=== PATIENT | female | born 1945 | race Caucasian/White ===

== ENCOUNTER 2017-12-05 14:24 | Emergency (ER) | payer MEDICARE, OTHER ==
[~2017-12-05] VITALS: Ht 175.3 cm; Wt 75.0 kg
[~2017-12-05 14:24] MED LIST: ADVAIR DISK1 IN; ALBUTEROL0.5 % IN; AMOXICILLIN500 MG PO; AUGMENTIN875TAB PO; CIPR1 PO; CIPROFLOXACN500 MG PO; HYDROCO/APAP1 TA9 PO; NEXIUM20 M1 OR; NEXIUM20 M1 PO; NITROFURANTN100 MG PO; SPIRIVA IN; ZOFRAN ODT4 MG SL
[2017-12-05 15:24] LABS: IMMATURE GRANULOCYTES 1.3 % (0.0-5.0); MEAN CELL VOLUME 90.4 fL CALC (80.0-100.0); MEAN CORPUSCULAR HGB 29.7 pG CALC (26.0-32.0); MEAN CORPUSCULAR HGB CONC 32.8 g/L CALC (32.0-36.0); NEUT# 9.02 thou/uL (2.00-7.15); RED BLOOD COUNT 5.53 mill/uL (4.20-5.60); RED CELL DISTRI WIDTH 13.2 % (11.5-15.5)
[2017-12-05 15:28] LABS: HEMOGLOBIN 16.4 g/dl (12.0-16.0)
[2017-12-05 15:43] LABS: ALBUMIN 4.3 g/dL (3.2-5.0); ALKALINE PHOSPHATASE 129 u/l (38-126); ANION GAP 17 (6-22 (CALC)); BILIRUBIN, TOTAL 0.5 mg/dL (0.0-1.4); BUN 11 mg/dL (8-23); BUN/CREATININE RATIO 20 (12-20 (CALC)); CARBON DIOXIDE 26 mmol/l (22-30); CHLORIDE 98 mmol/l (95-108); CREATININE 0.6 mg/dL (0.5-1.0); GFR > 60 ML/MIN (>=60 (CALC)); GFR FOR AFR.AMER. > 60 ML/MIN (>=60 (CALC)); LIPASE 51 u/l (23-300); POTASSIUM 4.3 mmol/l (3.5-5.1); SGOT/AST 17 u/l (9-36); SGPT/ALT 28 u/l (11-66); SODIUM 137 mmol/l (137-146)
[2017-12-05] MEDS ORDERED: ZOFRAN4 MG/TAB PO (16:12)
[2017-12-05] MEDS ORDERED: PROTONIX40 M2 PO (16:12)
[2017-12-05 16:39] VITALS: BP 144/65
[2017-12-06] MEDS ORDERED: ZITHROMAX250 MG PO (12:16)
[2017-12-06] MEDS ORDERED: PERCOGESI1 PO (12:17)
== END 2017-12-05 16:46 | disposition home or self-care (01) ==
LOC: ED 14:24
PROVIDERS: Emergency Medicine
DX: R11.2 Nausea with vomiting, unspecified (principal); K21.9 Gastro-esophageal reflux disease without esophagitis; J44.9 Chronic obstructive pulmonary disease, unspecified

== ENCOUNTER 2017-12-06 07:28 | Emergency (ER) | payer MEDICARE, OTHER ==
[~2017-12-06] VITALS: Ht 175.3 cm; Wt 75.0 kg
[~2017-12-06 07:28] MED LIST changes: +PROTONIX40 M2 PO; +ZOFRAN4 MG/TAB PO
[2017-12-06 08:02] LABS: URINE BILIRUBIN - DIPSTICK NEGATIVE (NEGATIVE); URINE BLOOD DIPSTICK TRACE-LYSED (NEGATIVE); URINE COLOR YELLOW; URINE GLUCOSE - DIPSTICK NEGATIVE (NEGATIVE); URINE KETONE NEGATIVE (NEGATIVE); URINE LEUK ESTERASE NEGATIVE (NEGATIVE); URINE NITRITE - DIPSTICK NEGATIVE (Negative); URINE PROTEIN - DIPSTICK NEGATIVE (NEG-TRACE); URINE SPECIFIC GRAVITY >=1.030; URINE UROBILINOGEN - DIPSTICK 0.2 E.U./dL (0.2)
[2017-12-06 08:03] LABS: URINE CLARITY CLEAR
[2017-12-06 08:11] LABS: HEMATOCRIT 48.3 % (37.0-47.0); HEMOGLOBIN 15.7 g/dl (12.0-16.0); IMMATURE GRANULOCYTES 0.8 % (0.0-5.0); MEAN CELL VOLUME 90.1 fL CALC (80.0-100.0); MEAN CORPUSCULAR HGB 29.3 pG CALC (26.0-32.0); MEAN CORPUSCULAR HGB CONC 32.5 g/L CALC (32.0-36.0); NEUT# 10.85 thou/uL (2.00-7.15); RED BLOOD COUNT 5.36 mill/uL (4.20-5.60); RED CELL DISTRI WIDTH 13.1 % (11.5-15.5)
[2017-12-06 08:27] LABS: ALBUMIN 4.2 g/dL (3.2-5.0); ALKALINE PHOSPHATASE 116 u/l (38-126); ANION GAP 17 (6-22 (CALC)); BILIRUBIN, TOTAL 0.7 mg/dL (0.0-1.4); BUN 11 mg/dL (8-23); BUN/CREATININE RATIO 18 (12-20 (CALC)); CARBON DIOXIDE 26 mmol/l (22-30); CHLORIDE 93 mmol/l (95-108); CREATININE 0.6 mg/dL (0.5-1.0); GFR > 60 ML/MIN (>=60 (CALC)); GFR FOR AFR.AMER. > 60 ML/MIN (>=60 (CALC)); LIPASE 34 u/l (23-300); POTASSIUM 4.1 mmol/l (3.5-5.1); SGOT/AST 17 u/l (9-36); SGPT/ALT 29 u/l (11-66); SODIUM 132 mmol/l (137-146); TOTAL PROTEIN 7.5 g/dL (6.3-8.2)
[2017-12-06] MEDS ORDERED: ZITHROMAX250 MG PO (12:16)
[2017-12-06] MEDS ORDERED: PERCOGESI1 PO (12:17)
[2017-12-06 12:39] VITALS: BP 119/62
== END 2017-12-06 12:39 | disposition home or self-care (01) ==
LOC: ED 07:28
PROVIDERS: Emergency Medicine
DX: R11.10 Vomiting, unspecified (principal); K21.9 Gastro-esophageal reflux disease without esophagitis; J44.9 Chronic obstructive pulmonary disease, unspecified
CPT/HCPCS: Q9967

== ENCOUNTER 2020-04-18 10:51 | Inpatient (IN) | payer MEDICARE, MEDICAID ==
[~2020-04-18] VITALS: Ht 175.3 cm; Wt 70.5 kg
[2020-04-18] VITALS (18 sets, daily range): BP systolic 84–129; BP diastolic 46–74
[~2020-04-18 10:51] MED LIST changes: +PERCOGESI1 PO; +ZITHROMAX250 MG PO
--- NOTE | 2020-04-18 10:55 | NUR ---
TO ROOM VIA EMS. MD AT BEDSIDE.
[2020-04-18 11:39] LABS: HEMATOCRIT 47.8 % (37.0-47.0); HEMOGLOBIN 15.1 g/dl (12.0-16.0); IMMATURE GRANULOCYTES 3.4 % (0.0-5.0); MEAN CORPUSCULAR HGB 29.4 pG CALC (26.0-32.0); MEAN CORPUSCULAR HGB CONC 31.6 g/dL CAL (32.0-36.0); NEUT# 4.92 thou/uL (2.00-7.15); RED BLOOD COUNT 5.14 mill/uL (4.20-5.60); RED CELL DISTRI WIDTH 15.5 % (11.5-15.5)
[2020-04-18 11:59] LABS: ALBUMIN 3.7 g/dL (3.2-5.0); ALKALINE PHOSPHATASE 80 u/l (38-126); ANION GAP 16 (6-22 (CALC)); BILIRUBIN, TOTAL 0.6 mg/dL (0.0-1.4); CARBON DIOXIDE 24 mmol/l (22-30); CHLORIDE 96 mmol/l (95-108); CREATININE 0.7 mg/dL (0.5-1.0); GFR > 60 ML/MIN (>=60 (CALC)); GFR FOR AFR.AMER. > 60 ML/MIN (>=60 (CALC)); LIPASE 99 u/l (23-300); POTASSIUM 4.7 mmol/l (3.5-5.1); SODIUM 131 mmol/l (137-146)
--- NOTE | 2020-04-18 12:00 | NUR ---
RESTING IN HIGH FOWLERS, SPO2 88-90% ON 100% NONREBREATHER. DENIES NEEDS.
[2020-04-18 12:10] LABS: BUN 36 mg/dL (8-23); BUN/CREATININE RATIO 51 (12-20 (CALC)); C-REACTIVE PROTEIN 24.4 mg/dL (0-0.9); SGOT/AST 51 u/l (9-36)
--- NOTE | 2020-04-18 13:20 | NUR ---
PT RETURNED FROM RADIOOLGY VIA STRETCHER. HR 120'S-130'S, SPO2 80% ON 100% NON REBREATHER. PT ALERT AND ORIENTED. DENIES PAIN. NOTIFIED.
--- NOTE | 2020-04-18 13:30 | NUR ---
RESP THERAPIST AT BEDSIDE. BI PAP INITIATED. PT TOLERATED WITHOUT C/O.
--- NOTE | 2020-04-18 13:45 | NUR ---
CARDIZIEM GTT INITIATED PER PROTOCOL 10ML/HR.
[2020-04-18 14:00] LABS: URINE BILIRUBIN - DIPSTICK SMALL (NEGATIVE); URINE BLOOD DIPSTICK LARGE (NEGATIVE); URINE COLOR AMBER; URINE GLUCOSE - DIPSTICK NEGATIVE (NEGATIVE); URINE KETONE 15 mg/dL (NEGATIVE); URINE LEUK ESTERASE NEGATIVE (NEGATIVE); URINE NITRITE - DIPSTICK NEGATIVE (Negative); URINE PROTEIN - DIPSTICK 30 mg/dL (NEG-TRACE); URINE SPECIFIC GRAVITY >=1.030; URINE UROBILINOGEN - DIPSTICK 0.2 E.U./dL (0.2)
[2020-04-18 14:08] LABS: URINE AMORPH SEDIMENT FEW hpf (NONE-FEW); URINE FINE GRAN CAST FEW lpf; URINE SQUAMOUS EPITHELIAL CELL FEW EPI/hpf (0-FEW); URINE WBC 0-2 WBC/hpf (0-5); URINE YEAST FEW hpf
--- NOTE | 2020-04-18 14:39 | NUR ---
PT ASSISTED TO BEDPAN. KATHRINE CARE PROVIDED.
[2020-04-18] MEDS ORDERED: ZPAK PO (15:43)
[2020-04-18] MEDS ORDERED: ONDANSETRON ODT8 MG SL (15:43)
[2020-04-18] MEDS ORDERED: SPIRIVA HANDIHALER IN (15:44)
[2020-04-18] MEDS ORDERED: SYMBICORT1 AE1 IN (15:45)
--- NOTE | 2020-04-18 16:32 | NUR ---
MARTIN WILCOX APRN AT BEDSIDE.
--- NOTE | 2020-04-18 17:00 | NUR ---
PT ASSISTED TO BEDPAN.
--- NOTE | 2020-04-18 17:16 | NUR ---
REPORT CALLED TO JIM DOLL.
--- NOTE | 2020-04-18 17:30 | NUR ---
TO ICU VIA STRETCHER, MONITORS AND BI PAP IN PLACE. ACCOMPANIED BY CECY MCDONALD
--- NOTE | 2020-04-18 17:45 | NUR ---
PATIENT ARRIVES VIA STRETCHER ON BIPAP FIO2 100%, NO SOB NOTED, DENIES SOB. ACCOMPANIED BY RT YOSI AND ER NURSE JANET. IS ABLE TO SCOOT TO BED. LIMITED MEDICAL HISTORY OBTAINED DUE TO PATIENT ON BIPAP MASK AND GARBLED SPEECH. O2 SATS 88%-90%. ON CARDIZEM DRIP AT 10 MG/HR AND NS AT KVO, REMDESEVIR AT 250 ML/HR. LAC 18 EMS SITE INTACT, RAC 20 G INTACT, ALL FLUSH PROPERLY. NURSE ASSESSMNET PERFORMED, SEE CHARTING DOCUMENTATION. LAYS IN LOVE'S POSITION. HR RANGES LOW 100'S. CALL LIGHT WITHIN REACH.
--- NOTE | 2020-04-18 19:15 | NUR ---
PT RESTING IN BED ON BIPAP AT THIS TIME. PT IS ALERT AND ORIENTED X3. SHIFT ASSESSMENT COMPLETED AT THIS TIME. IV PATENT X2. CALL LIGHT IN REACH. WILL CONTINUE TO MONITOR
--- NOTE | 2020-04-18 20:11 | NUR ---
SPOKE WITH DAUGHTER SHANTEL REFERENCE QUESTION OF DNI/DNR. FAMILY STATES THAT PATIENT WISHES TO BE A DNR. DR HO NOTIFIED FOR ORDERS.
--- NOTE | 2020-04-18 20:49 | NUR ---
PT STRETCHER AND DRIER LIGHT REQUESTING WATER AND FOR BIPAP TO BE REMOVED. EXPLAINED THE NECESSITY OF THE BIPAP. WATER PROVIDED. PT AGREES TO KEEP BIPAP ON.
--- NOTE | 2020-04-18 22:07 | NUR ---
PT RESTING IN BED WITH EYES CLOSED ON BIPAP AT THIS TIME. VSS ON MONITOR. WILL CONTINUE TO MONITOR.
--- NOTE | 2020-04-18 23:14 | NUR ---
RT AT BEDSIDE FOR EKG
[2020-04-19] VITALS (22 sets, daily range): BP systolic 102–171; BP diastolic 48–79
--- NOTE | 2020-04-19 00:24 | NUR ---
pt resting in bed on bipap. vss on momitor. call lgiht in reach. will continue to monitor.
--- NOTE | 2020-04-19 02:00 | NUR ---
pt resting in bed on bipap. vss on monitor. call light in reach. will continue to monitor.
--- NOTE | 2020-04-19 04:03 | NUR ---
PT RESTING IN BED ON BIPAP. RESP ARE EVEN AND UNLABORED. NO DISTRESS NOTED. CALL LIGHT IN REACH. WILL CONTINUE TO MONITOR.,
--- NOTE | 2020-04-19 04:53 | NUR ---
LAB AT BEDSIDE AT THIS TIME.
[2020-04-19 05:12] LABS: HEMATOCRIT 45.9 % (37.0-47.0); HEMOGLOBIN 13.9 g/dl (12.0-16.0); MEAN CELL VOLUME 93.9 fL CALC (80.0-100.0); MEAN CORPUSCULAR HGB 28.4 pG CALC (26.0-32.0); MEAN CORPUSCULAR HGB CONC 30.3 g/dL CAL (32.0-36.0); NEUT# 3.19 thou/uL (2.00-7.15); RED BLOOD COUNT 4.89 mill/uL (4.20-5.60); RED CELL DISTRI WIDTH 15.6 % (11.5-15.5)
[2020-04-19 05:44] LABS: ALKALINE PHOSPHATASE 77 u/l (38-126); ANION GAP 15 (6-22 (CALC)); BUN 24 mg/dL (8-23); BUN/CREATININE RATIO 43 (12-20 (CALC)); CARBON DIOXIDE 23 mmol/l (22-30); CHLORIDE 105 mmol/l (95-108); CREATININE 0.6 mg/dL (0.5-1.0); GFR > 60 ML/MIN (>=60 (CALC)); GFR FOR AFR.AMER. > 60 ML/MIN (>=60 (CALC)); POTASSIUM 4.7 mmol/l (3.5-5.1); SGOT/AST 47 u/l (9-36); SODIUM 137 mmol/l (137-146)
[2020-04-19 05:54] LABS: BILIRUBIN, TOTAL 0.3 mg/dL (0.0-1.4); C-REACTIVE PROTEIN 19.8 mg/dL (0-0.9)
--- NOTE | 2020-04-19 06:03 | NUR ---
PT RESTING IN BED ON BIPAP. RESP ARE EVEN AND UNLABORED. NO DISTRESS NOTED. CALL LIGHT IN REACH. WILL CONTINUE TO MONITOR.
--- NOTE | 2020-04-19 06:34 | NUR ---
RT AT BEDSIDE TO TRY PATIENT ON HI NICKIE NASAL CANNULA.
--- NOTE | 2020-04-19 06:47 | NUR ---
PT PLACED BAKC ON BIPAP DUE TO DECREASED O2 SATS
--- NOTE | 2020-04-19 07:10 | NUR ---
REPORT RECEIVED FROM LAVON BRIDGES. PT RESTING IN BED SEMI FOWLERS; ALERT AND OREINTED X 3; BIPAP IN PLACE 100% FIO2; SPO2 92-93%; RESPIRATIONS EVEN AND SLIGHTLY LABORED; COURSE LUNG SOUNDS TO LEFT LOBE AND INSPIRATORY WHEEZING TO RIGHT LOBE, SLIGHTLY DIMINISHED OVERALL. DENIES PAIN. NS INFUSING AT KVO WITHOUT DIFFICULTY; IV SITES APPEAR HEALTHY. ON AIRBORNE/CONTACT PRECAUTIONS FOR COVID19. POC REVIEWED. PT ENCOURAGED TO VERBALIZE CONCERNS; STATES UNDERSTANDING. SAFETY MEASURES IN PLACE. CALL LIGHT WITHIN REACH.
--- NOTE | 2020-04-19 08:19 | NUR ---
DR. BARR AT BEDSIDE.
--- NOTE | 2020-04-19 08:36 | NUR ---
RT AT BEDSIDE; PT NOW ON VAPOTHERM 40L 100% FOI2.
--- NOTE | 2020-04-19 10:06 | NUR ---
SPO2 ON VAPOTHERM 75-80%; PT HAS LABORED BREATHING, BUT IN NO SEVERE DISTRESS. PLACED BACK ON BIPAP WITH 100% FIO2; SPO2 INCREASED TO 92% AT THIS TIME. PT GIVEN SCHEDULED INHALERS AND ABT INFUSING.
--- NOTE | 2020-04-19 10:49 | NUR ---
Patient is screened for PT intervention and may benefit if medical agrees
--- NOTE | 2020-04-19 11:50 | NUR ---
ASSISTED ONTO BEDPAN FOR VOID; ASSISTED WITH KATHRINE CARE. PT NOW RESTING ON LEFT SIDE. 95-97% ON BIPAP.
--- NOTE | 2020-04-19 13:55 | NUR ---
USED CALL LIGHT TO REQUEST BEDPAIN FOR SMALL PASTY DARK BROWN BOWEL MOVEMENT AND VOID; ASSISTED WITH KATHRINE CARE. BIPAP REMOVED FOR SIP OF WATER AND REAPPLIED. RESTING WITH HOB ELEVATED 45 DEGREES AT THIS TIME. FAMILY MEMBERS CALLING IN FOR UPDATES; QUESTIONS ANSWERED TO SATISFACTION.
--- NOTE | 2020-04-19 16:00 | NUR ---
RESTING WITH EYES CLOSED AND NO SIGNS OF DISTRESS; RESPIRATIONS EVEN AND UNLABORED; BIPAP SETTINGS NOW 90% FOI2 AND RATE OF 18; RESP 22-28; PT TOLERATING MASK WELL. NO REQUESTS OR CONCERNS AT THIS TIME.
--- NOTE | 2020-04-19 17:45 | NUR ---
REPOSITIONED AND ASSISTED WITH BEING PULLED UP IN BED; VOIDED 100ML OF CLOUDY CLARICE URINE IN ARSHAD. IV FLUIDS COMPLETED AND IV SITES NOW SALINE LOCKED.
--- NOTE | 2020-04-19 18:45 | NUR ---
REPORT RECEIVED FROM DARYL DOLL. CARE ASSUMED.
--- NOTE | 2020-04-19 19:15 | NUR ---
PT RESTING IN BED AWAKE. PT IS ALERT AND ORIENTED X3. PT ON VAPOTHERM. SHIFT ASSESSMENT COMPLETED AT THIS TIME. IV PATENT X2. CALL LIGHT IN REACH. WILL CONTINUE TO MONITOR.
--- NOTE | 2020-04-19 19:18 | NUR ---
RESPIRATORY WENT TO ASSESS THE PATIENT FOR DEEP SUCTIONING. PATIENT HAS A STRONG COUGH. NOT ENOUGH SECRETION TO BE SUCTIONED. RN NOTIFIED AFTER RT ASSESSMENT.
--- NOTE | 2020-04-19 21:30 | NUR ---
PT PLACED BACK ON BIPAP AT THIS TIME.
--- NOTE | 2020-04-19 22:40 | NUR ---
PT RESTING IN BED ON BIPAP. ROMA VIDAL INTO GIVE PT MEDS. BIPAP REMOVED FOR MEDS AND THEN PLACED BACK ON.
--- NOTE | 2020-04-19 23:47 | NUR ---
PT RESTING IN BED ON BIPAP. VSS ON MONITOR. CALL LIGHT IN REACH. WILL CONTINUE TO MONITOR.
[2020-04-20] VITALS (22 sets, daily range): BP systolic 111–172; BP diastolic 63–89
--- NOTE | 2020-04-20 01:51 | NUR ---
PT RESTING IN BED IN PRONE POSITION ON BIPAP. VSS ON MONITOR. CALL LIGHT IN REACH. WILL CONTINUE TO MONITOR.
--- NOTE | 2020-04-20 03:42 | NUR ---
PT WITH COMPLAINTS OF ABD PAIN AND NAUSEA. CALLED RT TO PLACE PT ON VAPOTHERM INSTEAD OF BIPAP DUE TO NAUSEA.
--- NOTE | 2020-04-20 05:00 | NUR ---
LAB AT BEDSIDE FOR AM LABS
[2020-04-20 05:59] LABS: HEMATOCRIT 45.2 % (37.0-47.0); HEMOGLOBIN 13.9 g/dl (12.0-16.0); MEAN CORPUSCULAR HGB 28.9 pG CALC (26.0-32.0); MEAN CORPUSCULAR HGB CONC 30.8 g/dL CAL (32.0-36.0); RED BLOOD COUNT 4.81 mill/uL (4.20-5.60); RED CELL DISTRI WIDTH 15.8 % (11.5-15.5)
--- NOTE | 2020-04-20 06:00 | NUR ---
PT RESTING IN BED ON BIPAP. NO DISTRESS NOTED. CALL LIGHT IN REACH. WILL CONTINUE TO MONITOR.
[2020-04-20 06:21] LABS: ALBUMIN 3.1 g/dL (3.2-5.0); ALKALINE PHOSPHATASE 78 u/l (38-126); BUN 18 mg/dL (8-23); BUN/CREATININE RATIO 42 (12-20 (CALC)); CHLORIDE 103 mmol/l (95-108); CREATININE 0.4 mg/dL (0.5-1.0); GFR > 60 ML/MIN (>=60 (CALC)); GFR FOR AFR.AMER. > 60 ML/MIN (>=60 (CALC)); POTASSIUM 4.5 mmol/l (3.5-5.1); SGOT/AST 35 u/l (9-36); SODIUM 139 mmol/l (137-146); TOTAL PROTEIN 5.9 g/dL (6.3-8.2)
[2020-04-20 06:22] LABS: ANION GAP 11 (6-22 (CALC)); BILIRUBIN, TOTAL 0.5 mg/dL (0.0-1.4); CARBON DIOXIDE 30 mmol/l (22-30)
--- NOTE | 2020-04-20 07:30 | NUR ---
pt awake in bed; no apparent distress noted; pt offers no complaints; assessment completed at this time; pt alert and oriented; denies pain; no n/v noted per filing writer; resp even and unlabored; lungs diminished; skin color wnl; bipap intact and maintained with settings of 16/8 with 100% FiO2; dry cough noted; hr reg; strong pulses; no edema noted; sr on monitor; abd soft with bs present; no bm noted per filing writer; no urine to inspect at this time; bedpan provided prn; #20 lac saline locked; no redness or edema noted at site; am bath offered and declined; plan of care/ am meds explained; call light within reach; will continue to monitor
--- NOTE | 2020-04-20 09:07 | NUR ---
staff at bedside; am meds explained and administered; pt continues to request off bipap; importance explained; will contiune to monitor
--- NOTE | 2020-04-20 10:05 | NUR ---
awake in bed; no apparent distress noted; pt continues to request off of the bipap machine; informed oxygen level drop when off machine; po fluids provided; iv intact; abt infusing without complication; sr on monitor; call light within reach; will continue to monitor
--- NOTE | 2020-04-20 11:13 | NUR ---
maty Venessa called this staff writer; update provided; will continue to monitor
--- NOTE | 2020-04-20 12:00 | NUR ---
awake in bed; no apparent distress noted; resp even and unlabored; iv intact; sr on monitor; call light within reach; will continue to monitor
--- NOTE | 2020-04-20 13:05 | NUR ---
pt awake in bed; bipap importance explained and pt compliant; sr on monitor; iv intact and patent; pt deny needs; call light within reach; will continue to monitor
--- NOTE | 2020-04-20 14:20 | NUR ---
awake in bed; continue to manuever with bipap; RT at bedside to explained the importance of leaving bipap in place; po fluids provided; sr on monitor; call light within reach; will continue to monitor
--- NOTE | 2020-04-20 15:27 | NUR ---
pt has removed bipap; o2 sat noted at 81%; re-applied; will continue to monitor
--- NOTE | 2020-04-20 15:52 | NUR ---
pt again has removed bipap; o2 sat 80%; bipap reapplied
--- NOTE | 2020-04-20 16:20 | NUR ---
awake in bed; bipap intact and maintained; iv intact; sr on monitor; call light within reach; will continue to monitor
--- NOTE | 2020-04-20 18:20 | NUR ---
awake in bed; offers no complaints; iv intact and patent; no redness or edema noted at site; bipap intact and maintained; iv intact; sr on monitor; call light within reach
--- NOTE | 2020-04-20 18:55 | NUR ---
REPORT RECEIVED FROM Jillian PINA RN, CARE OF PT ASSUMED AT THIS TIME.
--- NOTE | 2020-04-20 19:00 | NUR ---
PT HAS TAKEN APART AND DISCONNECTED BIPAP TUBING, SPO2 QUICKLY DECREASES TO THE 50'S. ORDER FOR B/L WRIST RESTRAINTS RECEIVED, SEE ORDERS. B/L SOFT WRIST RESTRAINTS APPLIED AFTER BIPAP REAPPLIED. SP02 90-91% AFTER BIPAP REAPPLIED. B/L RESTRAINTS NEEDED TO MAINTAIN BIPAP ON AND SATS WNL.
--- NOTE | 2020-04-20 19:00 | NUR ---
REPORT RECEIVED FROM Jillian PINA RN, CARE OF PT ASSUMED AT THIS TIME.
--- NOTE | 2020-04-20 19:30 | NUR ---
PHYSICAL ASSESMENT COMPLETE, SEE SHIFT ASSESMENT.
--- NOTE | 2020-04-20 19:55 | NUR ---
daughter Venessa called per promotion writer; update provided
--- NOTE | 2020-04-20 19:58 | NUR ---
RETAIL SHIFT LEADER IN ROOM TO PUT PT ON BEDPAN.
--- NOTE | 2020-04-20 20:00 | NUR ---
RESTRAINTS RELEASED FOR CARE, PT INCONTINENT OF MODERATE AMOUNT DARK BROWN "PASTE CONSISTENCY" STOOL, PT WASHED/ LINENS CHANGED WITH ASSISTANCE FROM HOSPITAL INTERN.
--- NOTE | 2020-04-20 20:59 | NUR ---
SCHEDULED MEDICATION ADMINISTERED, SEE E-MAR.
--- NOTE | 2020-04-20 21:15 | NUR ---
PATIENT REMOVES MASK BY SHAKING HEAD BACK AND FORTH AND MANUEVERING MASK AGAINST HER SHOULDER. STATES "I NEED THIS OFF TO GET SOME AIR", EXPLAINED TO PATIENT SHE GETS VERY HYPOXIC WITHOUT BIPAP AND KEEPING BIPAP ON IS PROVIDING HER WITH THE AMOUNT OF OXYGEN NEEDED.
--- NOTE | 2020-04-20 22:00 | NUR ---
PT RESTING IN BED WTH EYES CLOSED, APPEARS TO BE SLEEPING COMFORTABLE. NO LONGER FIGHTING BIBPAP.
--- NOTE | 2020-04-20 23:15 | NUR ---
PT AWAKE, ABLE TO DISCONNECT BIPAP BY SHAKING HER HEAD BACK AND FORTH AND RUBBING HOSE AGAINST BED. PT QUICKLY DESATS IN TO THE 80'S. BIPAP RE-APPLIED. SONJA APPLIED BY Tequila LOAIZA RN TO HELP WITH PT VOIDING SHE BECOMES VERY SOB WITH USING BEDPAN.
--- NOTE | 2020-04-20 23:40 | NUR ---
PT STATES ATIVAN MAKE HER VOMIT, ATIVAN HELD.
[2020-04-21] VITALS (51 sets, daily range): BP systolic 81–156; BP diastolic 34–109
--- NOTE | 2020-04-21 | NUR ---
APPEARS PT IS AFIB RVR ON MONITOR, DR. ZAPIEN NOTIFIED ORDER FOR CARDIZEM GTT RECEIVED.
--- NOTE | 2020-04-21 00:15 | NUR ---
ORDER FOR SL XANAX RECEIVED FROM DR. ZAPIEN, PT REPORTS SHE CAN TOLERATE XANAX AND AGREES TO TAKE, SEE E-MAR.
--- NOTE | 2020-04-21 00:15 | NUR ---
CARDIZEM GTT INITIATED AT 10MG/10 ML PER HOUR, SEE E-MAR.
--- NOTE | 2020-04-21 01:42 | NUR ---
Antoine GOTTI OYSTER BUYER IN WITH PT TO ADJUSTS BIPAP MASK.
--- NOTE | 2020-04-21 02:46 | NUR ---
ORDER RECEIVED FROM DR. ZAPIEN FOR MORPHINE 4MG IV X1 NOW FOR RESP DISTRESS
--- NOTE | 2020-04-21 03:04 | NUR ---
PT MEDICATE WITH MORPHINE 4MG IV FOR RESPIRATORY DISTRESS AND ZOFRAN 4MG TO PREVENT N/V, SEE E-MAR.
--- NOTE | 2020-04-21 03:35 | NUR ---
PT CALMER AND LESS RESTLESS, HEART RATE IN THE 80'S/90'S, WORK OF BREATHING DECREASED.
--- NOTE | 2020-04-21 05:24 | NUR ---
PT APPEARS TO BE SLEEPING COMFORTABLY, BIPAP ON, SP02 88%, RESPIRATIONS REGULAR AND UNLABORED, NO APPARENT DISTRESS, CALL FLETCHER WITHIN REACH.
--- NOTE | 2020-04-21 06:15 | NUR ---
NIBP 89/44mmHg, CARDIZEM GTT DECREASED TO 10MG/ HOUR
[2020-04-21 06:20] LABS: HEMATOCRIT 44.3 % (37.0-47.0); HEMOGLOBIN 13.5 g/dl (12.0-16.0); MEAN CELL VOLUME 94.1 fL CALC (80.0-100.0); MEAN CORPUSCULAR HGB 28.7 pG CALC (26.0-32.0); MEAN CORPUSCULAR HGB CONC 30.5 g/dL CAL (32.0-36.0); NEUT# 11.9 thou/uL (2.00-7.15); RED BLOOD COUNT 4.71 mill/uL (4.20-5.60); RED CELL DISTRI WIDTH 15.7 % (11.5-15.5)
--- NOTE | 2020-04-21 06:35 | NUR ---
CALL RECEIVED FROM PT'S SON, UPDATES PROVIDED, QUESIONS ANSWERED.
[2020-04-21 06:45] LABS: ALBUMIN 2.8 g/dL (3.2-5.0); ALKALINE PHOSPHATASE 81 u/l (38-126); ANION GAP 11 (6-22 (CALC)); BILIRUBIN, TOTAL 0.6 mg/dL (0.0-1.4); BUN 16 mg/dL (8-23); BUN/CREATININE RATIO 33 (12-20 (CALC)); C-REACTIVE PROTEIN 7.9 mg/dL (0-0.9); CARBON DIOXIDE 34 mmol/l (22-30); CHLORIDE 103 mmol/l (95-108); CREATININE 0.5 mg/dL (0.5-1.0); GFR > 60 ML/MIN (>=60 (CALC)); GFR FOR AFR.AMER. > 60 ML/MIN (>=60 (CALC)); POTASSIUM 3.5 mmol/l (3.5-5.1); SGOT/AST 63 u/l (9-36); SODIUM 144 mmol/l (137-146); TOTAL PROTEIN 5.6 g/dL (6.3-8.2)
--- NOTE | 2020-04-21 07:00 | NUR ---
TROPONIN OF 8.5 REPORTED TO Jillian YU RN TO F/U WITH PT AND FAMILY REGARDING POSSIBLE TX TO [facility] FOR CARDIOLOGY. REPEAT TROPONIN IN 2 HOURS ORDERED.
--- NOTE | 2020-04-21 07:00 | NUR ---
AT TIME OF BEDSIDE REPORT PT IS NOTED TO HAVE REMOVIED RESTRAINTS. PT IS CURRENTLY CALM AND COOPERATIVE. NOT PULLING AT BIBPAP OR IV. RESTRAINTS D/C'D.
--- NOTE | 2020-04-21 07:45 | NUR ---
pt resting in bed with eyes closed; easily aroused; pt not compliant with am care; pt appears drowsy; pushes staff away when attempting to do an assessment; no apparent distress noted; no s/s of pain noted; no n/v noted; resp even and unlabored; lungs clear/ diminished; skin color wnl; o2 per bipap with settings of 16/8, rate 18 and 100% FiO2; hr reg; strong pulses; no edema noted; sr on monitor; abd soft with bs present; no bm noted per real estate underwriter; no urine to inspect at this time; #20 flushed and patent to lac; cardizem gtt titrated from 10 mg to 5mg/hr; no redness or edema noted at site; eks attempted, again to noncompliant with care; repositioned for comfort; plan of care/ am meds explained; will continue to monitor closely
--- NOTE | 2020-04-21 08:15 | NUR ---
awake; restless in bed; Cheryl Engel present outside of door per self to speak with pt; update provided; will continue to monitor
--- NOTE | 2020-04-21 08:31 | NUR ---
call received from Cheryl Engel; Cheryl has spoken with family and wishes for pt to be transferred if that is the recommendations per MD; Cheryl also informs this life underwriter that family wishes to have everything done including intubation; will speak with MD
--- NOTE | 2020-04-21 09:22 | NUR ---
awake in bed; noncompliant with nursing care; pt continues to remove bipap mask; pt refused po meds/inhalers; repositioned; extremely restless; st on monitor; will continue to monitor
--- NOTE | 2020-04-21 09:40 | NUR ---
Dr Martinez present at bedside to assess pt and discuss plan of care
--- NOTE | 2020-04-21 10:00 | NUR ---
phoned [facility] transfer center to initiate transfer spoke with tara. face sheet and covid test results faxed.
--- NOTE | 2020-04-21 10:05 | NUR ---
pt awake in bed; restless; sitting on side of bed; bipap cont being removed per pt; ticket writer stationed outside for door for pt safety; will continue to monitor
--- NOTE | 2020-04-21 10:44 | NUR ---
Dr Tsai informed of restlessness and anxiousness; pt continues to get out of bed and remove bipap and monitoring attachments; orders received and on chart
--- NOTE | 2020-04-21 10:55 | NUR ---
pt noted to have removed cardiac monitoring; positioned with lying at the foot of the bed; pt refusing to reposition; medicated with morphine as per orders; monitoring attachments reapplied; sr 70s on the monitor; bipap intact and maintained; o2 sat 93%; increased visual observation for pt safety; will continue to monitor
--- NOTE | 2020-04-21 11:05 | NUR ---
call received from [facility] transfer [facility], NO covva ICU bed available; Dr Martinez notified; will place call to [facility]
--- NOTE | 2020-04-21 11:27 | NUR ---
PHONED MACARIO WRIGHT SPOKE WITH CYNDIE THE UTILITY PIPE LAYER INFO GIVEN TO INITIATE TRANSFER.
--- NOTE | 2020-04-21 11:40 | NUR ---
return call placed to Venessa (daughter) as per request; Venessa updated in condition/ changes throughout the night as well as this am; communications writer informed Venessa of caridizem gtt and elevated troponin; informed of pending transfer to [place]; consent obtained per Venessa; Venessa request that this communications writer update her or brother (Mikel) due to conflict in stories from other family members; Venessa informed anyone with passcode may receive information; will continue to monitor
--- NOTE | 2020-04-21 11:46 | NUR ---
call received from Dr Shelley; accepting MD Dr Jara at [facility]
--- NOTE | 2020-04-21 12:05 | NUR ---
resting in bed on left side; appears more calm; bipap intact and maintained; iv intact; cardizem gtt infusing at 5mg/hr; call light within reach; will continue to monitor
--- NOTE | 2020-04-21 12:19 | NUR ---
awake in bed; attempting to climb out of bed; sr-st on monitor; pt has removed bipap; reapplied; toileting offered and declined; increase visual observation for pt safety; will continue to monitor
--- NOTE | 2020-04-21 12:36 | NUR ---
call received from Jason Theodore; per Ewelina, she was informed echo was requested; Jason Wall not doing ECHO on covid pt; Eduardo requesting this information be given to family; will notify MD and daughter Venessa
--- NOTE | 2020-04-21 12:56 | NUR ---
call received from son Flip Danielle; passcode verified; update provided; Flip informs this magnetic tape typewriter operator he just spoke with Venessa wh informed him "someone told him his mother will be leaving in 2 hours"; Flip informed that information was not given to Venessa by this magnetic tape typewriter operator; will continue to monitor
--- NOTE | 2020-04-21 13:02 | NUR ---
Dr Martinez called per senior mortgage underwriter in regards to ECHO; aware no echo will be done and continue with transfer; Dr Martinez request for this senior mortgage underwriter to inform Cheryl
--- NOTE | 2020-04-21 13:11 | NUR ---
Venessa harrell per manual writer; informed of NO ECHO on covid pt; ok to continue with transfer; [id number]- [place] Karen informed to continue with transfer
--- NOTE | 2020-04-21 14:05 | NUR ---
resting in bed on right side; no apparent distress noted; iv intact and patent; cardizem gtt at 5mg/hr; sr on monitor; bipap remains in cpap made; pt tolerating well; o2 sat 97%; will continue to monitor
--- NOTE | 2020-04-21 14:31 | NUR ---
call received from [facility] Ewelina; bed assignment received; pt to transfer to ICU 249; report to be called to [phone]
--- NOTE | 2020-04-21 15:00 | NUR ---
[facility] transport called darcy Ospina; information provided; ETA 6 hours
--- NOTE | 2020-04-21 15:22 | NUR ---
pt awake in bed; removed bipap; attempting to climb out of bed; bipap reapplied; st on monitor; iv's intact; will continue to monitor
--- NOTE | 2020-04-21 15:23 | NUR ---
Dr Martinez informed of 6 hour delay in brick picker for transfer;
--- NOTE | 2020-04-21 15:25 | NUR ---
LWC Cristina (charge nurse) called per this leader writer; informed of ETA for pickup 6 hours; report to be called to casino beverage server
--- NOTE | 2020-04-21 15:30 | NUR ---
pt removing bipap and monitoring attachments; RT Anai Osorio and this freelance copywriter present at bedside; pt combative with staff; pt noted with cyanosis to fingers; bipap importance explained; staff remains at bedside; will notify Dr Martinez
--- NOTE | 2020-04-21 15:40 | NUR ---
Dr Martinez called per this medical writer; informed pt refusing to keep bipap on; pt noted with cyanosis and skin mottling while off bipap; pt combative with staff; orders received and on chart
--- NOTE | 2020-04-21 15:44 | NUR ---
son Moise Danielle called this sports writer; passcode verified; update on transfer and pt condition provided
--- NOTE | 2020-04-21 16:20 | NUR ---
resting quietly in bed; bipap intact; sr on monitor; will continue to monitor
--- NOTE | 2020-04-21 16:35 | NUR ---
lab at bedside; pt uncooperative with staff; lab to be obtained at 1800
--- NOTE | 2020-04-21 17:30 | NUR ---
pt has removed bipap mask; o2 sat noted at 84%; flex o writer operator reapplied; cardizem gtt weaned as per MD orders; sr on monitor; will continue to monitor
--- NOTE | 2020-04-21 17:59 | NUR ---
awake in bed; removed bipap; attempting to climb out of bed; staff at bedside; st on monitor; call light within reach;
--- NOTE | 2020-04-21 18:15 | NUR ---
PT REMOVED BIPAP; WORKERS' COMPENSATION MAGISTRATE AT BEDSIDE TO REAPPLY; PT PUSHES STAFF AWAY; TROP OBTAINED; IV FLUSHED AND PATENT; TOILETING OFFERED
--- NOTE | 2020-04-21 19:30 | NUR ---
RESTING IN BED. PATIENT CURLED UP ON LEFT SIDE. ASSISTED PATIENT WITH REPOSITIONING. ON CPAP, 10 CM, RATE 16, O2 100% RESP NON-LABORED AT REST. BREATH SOUNDS DIMINISHED/CLEAR.
--- NOTE | 2020-04-21 20:30 | NUR ---
PATIENT RESTLESS AT TIMES. ATTEMPTS TO REMOVE BIPAP. FREQ REMINDERS TO LEAVE IT IN PLACE.
--- NOTE | 2020-04-21 20:35 | NUR ---
[facility] HERE FOR TRANSPORT.
--- NOTE | 2020-04-21 20:40 | NUR ---
MORPHINE 2 MG IVP ORDERED FOR SEDATION FOR TRANSPORT.
--- NOTE | 2020-04-21 21:00 | NUR ---
PATIENT ON STRETCHER READY FOR TRANSPORT. ON CPAP O2 SATS DROPPED TO 60% VERIFIED O2 SAT WITH MORE THAN ONE PULSE OXIMETER.
--- NOTE | 2020-04-21 21:10 | NUR ---
RT HERE TO EVALUATE PATIENT. SATS NOT PICKING UP. CALL TO REPORT TO DR ZAPIEN NEW ORDERS RECEIVED.
--- NOTE | 2020-04-21 21:15 | NUR ---
RETURNED PATIENT TO BED. PLACED BACK ON BIPAP BY RT.
--- NOTE | 2020-04-21 21:29 | NUR ---
ATTEMPTED TRANSPORT ON CPAP. PT'S SPO2 DROPPED TO 60% ON CPAP 10, 100%. PT PLACED BACK TO BIPAP 18/8 100%. SPO2 IMPROVING TO 92%.
--- NOTE | 2020-04-21 22:15 | NUR ---
INFOMRED DR ZAPIEN OF DIFFICULTY WITH PATIENT SATS ON CPAP AND BACK ON BIPAP 07/11, O2 100%, RATE 18. [facility]
--- NOTE | 2020-04-21 22:20 | NUR ---
INFOMRED NURSING POINTER MACHINE OPERATOR JAVIER AT [facility] WILL NOT BE TRANSFERRING PATIENT TONIGHT D/T UNTSABLE.
--- NOTE | 2020-04-21 22:25 | NUR ---
INFORMED PATIENT SON KEITH OF TRANSFER BEING CANCELLED WILMAN D/T DIFFICULTY MAINTAINING O2 SATS. FAMILY VERBALIZES UNDERSTANDING.
--- NOTE | 2020-04-21 23:00 | NUR ---
PATIENT RESTING WITH EYES CLOSED. VSS. O2 SAT 96% ON BIPAP.
[2020-04-22] VITALS: BP 139/66
--- NOTE | 2020-04-22 | NUR ---
NO CHANGES TO REPORT. VS REMAIN STABLE. RESTING CALMLY AND QUIETLY. SR ON MONITOR. O2 SAT 95%
[2020-04-22 01:00] VITALS: BP 137/60
--- NOTE | 2020-04-22 01:15 | NUR ---
TELECOMMUNICATIONS TECHNICIAN ALARMING FOR LOW HEART RATE, HEART RATE DROPPED TO 40'S WITH NOTED ST ELEVATION.
--- NOTE | 2020-04-22 01:20 | NUR ---
PATIENT UNRESPONSIVE TO VERBAL, TACTILE OR PAINFUL STIMULI. NAILBEDS DUSKY. O2 SAT DROPPING 79% AT THIS TIME.
--- NOTE | 2020-04-22 01:30 | NUR ---
PATIENT UNRESPONSIVE. MOTTLING NOTED, NALBEDS DUSKY. UNABLE TO AUSCULTATE OR PALPATE BP. PULSE THREADY, BARELY PALPABLE. IDIOVENTRICULAR RHYTHM NOTED.
--- NOTE | 2020-04-22 01:45 | NUR ---
UNABLE TO AUSCULTATE, PALPATE OR DOPPLER PULSE OR BP. NO RESP EFFORT. PRONOUNCED AT THIS TIME.
--- NOTE | 2020-04-22 02:00 | NUR ---
CALL TO DAUGHTER SHANTEL- NO ANSWER LEFT VM TO CALL HOSPITAL.
--- NOTE | 2020-04-22 02:13 | NUR ---
SPOKE WITH PATIENT SON KEITH, INFORED HIM OF PATIENT . HE STATES HE WILL INFORM HIS SISTER AND BROTHER AND GET BACK TO US FAR HOME.
--- NOTE | 2020-04-22 02:15 | NUR ---
CALL TO [employer] SPOKE WITH TOMMIE. PER TOMMIE PATIENT NOT SUITABLE TO ORGAN OR TISSUE DONATION. REF #[id number].
--- NOTE | 2020-04-22 02:25 | NUR ---
PAUL FROM [facility] RETURNED CALL- DECLINING PATIENT FOR DONATION AND RELEASING BODY TO HOME.
--- NOTE | 2020-04-22 03:30 | NUR ---
AWAITING CALL BACK FROM FAMILY REGARDING HOME.
--- NOTE | 2020-04-22 04:30 | NUR ---
GUM DIPPER VERO TRYING TO REACH FAMILY REGARDING THEIR CHOICE OF HOME.
--- NOTE | 2020-04-22 05:26 | NUR ---
CALLED BATOOL RAPHAEL [phone] WITH [facility].
== END 2020-04-22 06:30 | disposition expired | DRG 177 ==
LOC: ED 10:51 → ED-I 14:59 → ED 15:24 → ED-I 15:25 → ICU 15:25
PROVIDERS: Family Medicine; Internal Medicine; Nurse Practitioner; ADMIT Internal Medicine; ATTEND Internal Medicine
PROC: 5A09457 Assistance with Respiratory Ventilation, 24-96 Consecutive Hours, Continuous Positive Airway Pressure (ICD-10-PCS; principal; 2020-04-18)
PROC: XW033E5 Introduction of Remdesivir Anti-infective into Peripheral Vein, Percutaneous Approach, New Technology Group 5 (ICD-10-PCS; 2020-04-18)
DX: U07.1 COVID-19 (principal); J12.82 Pneumonia due to coronavirus disease 2019; J96.21 Acute and chronic respiratory failure with hypoxia; I21.9 Acute myocardial infarction, unspecified; J44.0 Chronic obstructive pulmonary disease with (acute) lower respiratory infection; I48.91 Unspecified atrial fibrillation; K21.9 Gastro-esophageal reflux disease without esophagitis; Z66 Do not resuscitate; Z87.11 Personal history of peptic ulcer disease; Z87.891 Personal history of nicotine dependence
CPT/HCPCS: J1650; J2060; Q9967; S0164